=== PATIENT | female | born 1960 | race Caucasian/White ===

== ENCOUNTER 2016-12-29 23:30 | Emergency (ER) | payer MEDICAID ==
[~2016-12-29] VITALS: Ht 154.9 cm; Wt 107.0 kg
[2016-12-30] MEDS ORDERED: ONDANSETRON HCL 4MG/2ML VIAL IV STA (01:25)
[2016-12-30] MEDS ORDERED: MORPHINE SULFATE 4 MG/ML CPJ (NOT FOR IM USE) IV STA (01:25)
[2016-12-30] MEDS ORDERED: ACETAMINOPHEN 325MG TABLET PO ONE (02:15)
[2016-12-30 04:22] VITALS: BP 123/73
== END 2016-12-30 05:16 | disposition home or self-care (01) ==
LOC: ER 23:30
DX: R51 Headache (principal); R07.89 Other chest pain; M54.9 Dorsalgia, unspecified; I10 Essential (primary) hypertension; V49.88XA Car occupant (driver) (passenger) injured in other specified transport accidents, initial encounter; Y93.89 Activity, other specified; Y92.410 Unspecified street and highway as the place of occurrence of the external cause; Y99.8 Other external cause status
CPT/HCPCS: 70450; 71010; 72070; 72100; 96374; 96375; 99284; J2270; J2405; Z7610